=== PATIENT | female | born 1960 | race Caucasian/White ===

== ENCOUNTER → 2024-02-27 | Day surgery (SDC) | payer BC, OTHER ==
[~2024-02-27] MED LIST: ACETAMINOPHEN 1000 MG/100 ML IV ONE; BUPIVACAINE HCL 0.5% INJ 30 ML VIAL INJ ONE; DEXAMETHASONE SOD PHOS INJ 4 MG/ML SDV ONE; EPHEDRINE SULFATE INJ 50 MG/ML VIAL ONE; EZETIMIBE-SIMV1 EAC3 PO; FAMOTIDINE 20 MG/2 ML VIAL IV ONE; FENTANYL CITRATE/PF 100MCG/2 ML INJ ONE; HUMALOG; HYGROTON25 MG PO; JARDIANCE25 MG PO; LEVOTHYROXINE25 MC1 PO; LEXAPRO20 MG PO; LIDOCAINE HCL 2% LOCAL INJ 5 ML SDV VIAL INJ ONE; METANX CAPSULE1 EACH PO; METFORMIN HCL850 MG PO; NEURONTIN300 MG PO; ONDANSETRON HCL INJ 2MG/ML 2ML 2 MG/ML VIAL ONE; OZEMPIC2 MG/0.75; PROPOFOL IV EMULSION 10 MG/ML 20 ML VIAL ONE; SEVOFLURANE INHAL SOLN 250 ML PEN BTL ONE; VALSARTAN-HCTZ1 EAC4 PO; [UNRECOGNIZED DRUG - OTHER] PO
[2024-02-27] MEDS: LACTATED RINGER'S 1,000 ML ONE (10:08)
[2024-02-27] MEDS: CEFAZOLIN SODIUM 2 GM ONE (10:09)
[2024-02-27 13:50] VITALS: BP 110/65; PULSE 72; RESP 16; O2SAT 97
== END | disposition home or self-care (01) ==
LOC: OR 09:53
PROVIDERS: ATTEND Podiatrist Foot & Ankle Surgery
DX: G57.52 Tarsal tunnel syndrome, left lower limb (principal); M54.16 Radiculopathy, lumbar region; G47.33 Obstructive sleep apnea (adult) (pediatric); E11.9 Type 2 diabetes mellitus without complications; I10 Essential (primary) hypertension; E78.5 Hyperlipidemia, unspecified; E03.9 Hypothyroidism, unspecified; F41.9 Anxiety disorder, unspecified; Z01.810 Encounter for preprocedural cardiovascular examination; Z79.84 Long term (current) use of oral hypoglycemic drugs; Z79.85 Long-term (current) use of injectable non-insulin antidiabetic drugs; Z79.4 Long term (current) use of insulin; Z79.899 Other long term (current) drug therapy
CPT/HCPCS: 28035; 93005; J0131; J1100; J2001; J2405; J2704; J3010; J7121